=== PATIENT | female | born 1975 | race Caucasian/White ===

== ENCOUNTER 2016-11-11 23:29 | Emergency (ER) | payer OTHER ==
[~2016-11-11] VITALS: Ht 167.6 cm; Wt 117.9 kg
[2016-11-12 01:37] VITALS: BP 153/92
[2016-11-12] MEDS ORDERED: OXYCODONE/APAP 5/325 TABLET. PO ONE (02:00)
[2016-11-12] MEDS ORDERED: HYDR-2666 PO (04:06)
--- NOTE | 2016-11-12 04:06 | PHYS DOC ---
Past Medical History Past Medical History: Hypertension Past Surgical History: Hysterectomy Alcohol Use: Occasionally Drug Use: None Adult General Chief Complaint Chief Complaint: FOOT INJURY PAIN HPI HPI 40-year-old female presenting to the emergency Department with injury to her right foot and ankle. She fell down a few stairs and dorsiflexed her right foot. Since then she is had sharp nonradiating pain that is worse with walking and improved with rest and ice. She denies any other injuries. Review of systems is negative for chest pain knee pain hip pain or abdominal pain. All other review of systems is negative. Review of Systems Review of Systems see above Current Medications Current Medications Current Medications Medications (Trade) Dose Ordered Sig/Fabby Start Time Stop Time Status Last Admin Dose Admin Oxycodone/ Acetaminophen (Percocet 5/325) 1 tab 1X ONCE 11/12/16 02:00 11/12/16 02:01 DC 11/12/16 02:33 1 TAB Allergies Allergies Allergies Coded Allergies Type Severity Reaction Last Updated Verified No Known Drug Allergies 11/12/16 No Physical Exam Physical Exam Constitutional: Well developed, well nourished, no acute distress, non-toxic appearance. HENT: Normocephalic, atraumatic, bilateral external ears normal, oropharynx moist, no oral exudates, nose normal. [] Eyes: PERRLA, EOMI, conjunctiva normal, no discharge. Neck: Normal range of motion, no tenderness, supple, no stridor. [] Cardiovascular:Heart rate regular rhythm, no murmur Lungs & Thorax: Bilateral breath sounds clear to auscultation [] Abdomen: Bowel sounds normal, soft, no tenderness, no masses, no pulsatile masses. Skin: Warm, dry, no erythema, no rash. [] Back: No tenderness, no CVA tenderness. Extremities: the patient's right lower extremity is one of perfused with a palpable pulse. Two second Refill present. Normal neurovascular status. There is swelling of the lateral dorsal aspect of the patient's foot. No ecchymosis lacerations present. Neurologic: Alert and oriented X 3, normal motor function, normal sensory function, no focal deficits noted. [] Psychologic: Affect normal, judgement normal, mood normal. Current Patient Data Vital Signs Vital Signs Date Time Temp Pulse Resp B/P Pulse Ox O2 Delivery O2 Flow Rate FiO2 11/12/16 02:33 16 11/12/16 01:37 97.5 61 99 Room Air 97.5 EKG EKG [] Radiology/Procedures Radiology/Procedures [] Course & Med Decision Making Course & Med Decision Making Pertinent Labs and Imaging studies reviewed. (See chart for details) []40-year-old female presenting to the emergency Department after rate ankle injury. X-rays were obtained which were largely unremarkable. There was a small radiopaque density near the distal end of the fibula. This may represent a small avulsion fracture. Otherwise ankle exam shows a stable ankle. Patients provided with oral pain medication recommended weight bearing as tolerated and to follow up with orthopedic surgery in 5 days for further evaluation workup and care. Dragon Disclaimer Dragon Disclaimer This electronic medical record was generated, in whole or in part, using a voice recognition dictation system. Departure Departure Impression: Primary Impression: Ankle sprain Disposition: HOME, SELF-CARE Condition: STABLE Referrals: ISAURA VICTORIA MD (PCP) REYNOLD NIELSEN MD Patient Instructions: Ankle Sprain Additional Instructions: Thank you for allowing us to participate in your care today. Followup with your primary care physician in 3 days if your symptoms do not improve. If you do not have a primary care provider you can ask for a list of our primary care providers. Return to the emergency department you have any new or concerning findings. This should be evaluated by the primary care physician and any necessary consulting services for continued management within a few days after discharge. Return to emergency room if you have any new or concerning symptoms including but not limited to fever, chills, nausea, vomiting, intractable pain, any new rashes, chest pain, shortness of air, uncontrolled bleeding, difficulty breathing, and/or vision loss. Scripts Hydrocodone Bit/Acetaminophen (Hydrocodone-Apap 5-325 )1 Each Tablet1 Tab PO PRN Q6HRS PRN PAIN #15 TAB Be careful as this medication may cause you to be drowsy or tired. Do not drive on this medication. Prov:CARLOS RIDDLE MD 11/12/16 CARLOS RIDDLE MD Nov 12, 2016 04:06
--- NOTE | 2016-11-12 07:41 | RAD ---
ANKLE RIGHT 3V History:ankle pain Comparison: None Findings:3 views right ankle are submitted. There is mild soft tissue swelling greater laterally about the ankle. There is a small plantar calcaneal enthesophyte. No acute fracture is identified. Impression: 1.No acute fracture is identified.
--- NOTE | 2016-11-12 07:48 | RAD ---
FOOT RIGHT 3V History:foot pain Comparison: None Findings:3 views right foot are submitted. No acute fracture or dislocation is identified. There is small plantar calcaneal enthesophyte. There is mild degenerative change midfoot. Impression: 1.No acute abnormality is identified.
[2016-11-13] MEDS ORDERED: METH4TAB2 PO (14:01)
[2016-11-13] MEDS ORDERED: HYDR-2762 PO (14:01)
[2016-11-13] MEDS ORDERED: GABA-586 PO (14:01)
== END 2016-11-12 04:31 | disposition home or self-care (01) ==
LOC: ER 23:29
DX: S93.401A Sprain of unspecified ligament of right ankle, initial encounter (principal); Z90.710 Acquired absence of both cervix and uterus; I10 Essential (primary) hypertension; W10.8XXA Fall (on) (from) other stairs and steps, initial encounter; Y93.89 Activity, other specified; Y92.89 Other specified places as the place of occurrence of the external cause; Y99.8 Other external cause status
CPT/HCPCS: 73610; 73630; 99284

== ENCOUNTER 2016-11-13 12:01 | Emergency (ER) | payer OTHER ==
[~2016-11-13 12:01] MED LIST: HYDR-2666 PO
[2016-11-13 13:16] VITALS: BP 114/59
[2016-11-13] MEDS ORDERED: HYDR-2762 PO (14:01)
[2016-11-13] MEDS ORDERED: GABA-586 PO (14:01)
[2016-11-13] MEDS ORDERED: METH4TAB2 PO (14:01)
--- NOTE | 2016-11-13 14:01 | PHYS DOC ---
Past Medical History Past Medical History: Hypertension Past Surgical History: Hysterectomy Alcohol Use: Occasionally Drug Use: None Adult General Chief Complaint Chief Complaint: FOOT INJURY PAIN HPI HPI Patient is a 40 year old female with history of hypertension who presents with continued moderate right ankle pain that began 2 days ago after she twisted her right ankle. She was seen in the ED, she states she had negative x-rays. Review of Systems Review of Systems Constitutional: Denies fever or chills [] Musculoskeletal: Right ankle pain Integument: Denies rash or skin lesions [] Neurologic: Denies headache, focal weakness or sensory changes [] Endocrine: Denies polyuria or polydipsia [] Allergies Allergies Allergies Coded Allergies Type Severity Reaction Last Updated Verified No Known Drug Allergies 11/12/16 No Physical Exam Physical Exam Constitutional: Well developed, well nourished, no acute distress, non-toxic appearance. [] Skin: Warm, dry, no erythema, no rash. [] Back: No tenderness, no CVA tenderness. [] Extremities: Right ankle with no obvious deformity, diffuse soft tissue swelling noted on the right lateral ankle. Tenderness on palpation of the medial and lateral ankle. Full range of motion to the right ankle and foot. +2 right pedal pulse. Cap refill less than 2 seconds the right lower extremity. Sensation intact to the right lower extremity. Neurologic: Alert and oriented X 3, normal motor function, normal sensory function, no focal deficits noted. [] Psychologic: Affect normal, judgement normal, mood normal. [] Current Patient Data Vital Signs Vital Signs Date Time Temp Pulse Resp B/P Pulse Ox O2 Delivery O2 Flow Rate FiO2 11/13/16 13:16 97.7 59 20 100 Room Air 97.7 EKG EKG [] Radiology/Procedures Radiology/Procedures [] Course & Med Decision Making Course & Med Decision Making Pertinent Labs and Imaging studies reviewed. (See chart for details) Patient is in the ED with continued right ankle pain after spraining 82 days ago. She was seen in the ED had negative x-rays. I recommended she follows up with the provided orthopedic doctor. Air cast was applied to the right ankle by the ED RN, neurovascular exam done by me is normal, patient was provided crutches. Ice elevation encouraged. Dragon Disclaimer Dragon Disclaimer This electronic medical record was generated, in whole or in part, using a voice recognition dictation system. Departure Departure Impression: Primary Impression: Ankle sprain Disposition: HOME, SELF-CARE Condition: STABLE Referrals: ISAURA VICTORIA MD (PCP) NOVA HEATON MD Follow-up with the provided doctor in 7 days Patient Instructions: Ankle Sprain Additional Instructions: You were seen for ongoing pain due to ankle sprain. Ice and elevate the extremity. Take the prescribed medicines as ordered. Follow-up with the provided orthopedic doctor in one week. Come back to the ED for any concerning symptoms. Scripts Gabapentin 300 Mg [id number] Mg PO TID #30 CAP Prov:YU THRASHER APRN 11/13/16 Methylprednisolone (Medrol)4 Mg Tab.ds.pk1 Pkg PO UD #1 PKG Prov:YU THRASHER APRN 11/13/16 Hydrocodone Bit/Acetaminophen (Hydrocodone-Apap 7.5-325 )1 Each Tablet1-2 Tab PO PRN Q6HRS PRN PAIN #20 TAB Ref 0 Prov:YU THRASHER APRN 11/13/16 Problem Qualifiers Primary Impression: Ankle sprain Encounter type: subsequent encounter Involved ligament of ankle: unspecified ligament Laterality: unspecified laterality Qualified Code: S93.409D - Sprain of unspecified ligament of unspecified ankle, subsequent encounter YU THRASHER APRN Nov 13, 2016 14:01
== END 2016-11-13 14:29 | disposition home or self-care (01) ==
LOC: ER 12:01
DX: S93.401A Sprain of unspecified ligament of right ankle, initial encounter (principal); I10 Essential (primary) hypertension; X50.9XXA Other and unspecified overexertion or strenuous movements or postures, initial encounter; Y93.89 Activity, other specified; Y92.89 Other specified places as the place of occurrence of the external cause; Y99.8 Other external cause status
CPT/HCPCS: 29515; 99283-25

== ENCOUNTER → 2017-01-11 | Outpatient (CLI) | payer OTHER ==
[~2017-01-11] MED LIST changes: +GABA-586 PO; +HYDR-2762 PO; +METH4TAB2 PO
--- NOTE | 2017-01-11 10:14 | RAD ---
DATE: January 11, 2017 EXAM: DIGITAL DIAGNOSTIC BILATERAL HISTORY: History of left breast lump since July 2016. COMPARISON: None are currently available. [facility] and [facility] were contacted and neither facility has any previous mammograms on this patient. Therefore, this is considered a new baseline mammogram This study was interpreted with the benefit of Computerized Aided Detection (CAD). DIAGNOSTIC MAMMOGRAM FINDINGS: The breast parenchyma is scattered and mildly dense. A metallic BB is placed on the palpable lump of the upper-outer quadrant of the left breast. This corresponds to a nodule. The right breast is unremarkable. No clustering of pleomorphic microcalcifications or architectural distortion is seen in either side. LEFT BREAST SONOGRAPHY: High-resolution sonography of the palpable lump of the left breast as indicated by the patient was performed. At the 2:00 position, 14 cm from the nipple, a lymph node is seen which measures 14 mm in greatest dimension. An echogenic central hilus is seen. The cortex measures 3.6 mm which is borderline. Therefore, this most likely represents a benign intramammary lymph node possibly reactive but recommend a 3 month follow-up left breast sonogram. IMPRESSION: Palpable lump corresponds to an intramammary lymph node of the 2:00 position of the left breast. Three-month follow-up left breast sonogram is recommended. BI-RADS CATEGORY: 3 PROBABLE BENIGN-SHORT TERM F/U RECOMMENDED FOLLOW-UP: 3M 3 MONTH FOLLOW-UP PQRS compliance statement: Patient information was entered into a reminder system with a target due date April 12, 2017 for the next imaging study. The patient's breast density may affect the ability of mammography to detect breast cancer. There are 4 categories of breast density, A, B, C and D. Breast density A means that most of the breast tissue is replaced with adipose tissue and therefore is not dense. Breast density B means that the breast tissue is mildly dense and scattered. Breast density C means that the breast tissue is heterogeneously dense. Breast density D means that the breast tissue is very dense. Breast densities especially C and D may decrease the sensitivity of mammography to detect breast cancer. Therefore, the patient may benefit from 3-D breast mammography (3D breast tomography) as a part of their screening mammogram. Insurance may or may not pay for this additional imaging. The patient's breast density based on today's mammogram is category B.. Mammography is a sensitive method for finding small breast cancers, but it does not detect them all and is not a substitute for careful clinical examination. A negative mammogram does not negate a clinically suspicious finding and should not result in delay in biopsying a clinically suspicious abnormality. "Our facility is accredited by the [employer] Mammography Program."
--- NOTE | 2017-01-11 10:55 | RAD ---
See diagnostic mammogram report of the same day. BI-RADS Category 3.
== END | disposition home or self-care (01) ==
LOC: MAMMO 09:16
PROVIDERS: ATTEND Family Medicine
DX: N63 Unspecified lump in breast (principal)
CPT/HCPCS: 76641; G0204; 77066

== ENCOUNTER → 2017-05-16 | Outpatient (CLI) | payer OTHER ==
[~2017-05-16] MED LIST changes: -HYDR-2666 PO; +HYDR-2758 PO
--- NOTE | 2017-05-16 15:34 | RAD ---
DATE: 01/11/2018 05/16/2017 EXAM: BREAST LEFT HISTORY: Follow-up left breast abnormality. COMPARISON: Left breast ultrasound 01/11/2017 FINDINGS: Sonographic evaluation at the 2:00 position, 14 cm from the nipple was performed in the region of previously described abnormality. There is redemonstration of a circumscribed oval predominantly hypoechoic mass with a central fatty hilum compatible with an intramammary lymph node. Lymph node measures 1.3 cm in maximal dimension, stable from the prior examination. There is relatively symmetric appearance of the cortex. Findings are compatible with benign findings. IMPRESSION: Left breast: Benign findings. Left breast intramammary lymph node compatible with benign findings. Recommend annual screening mammography. BI-RADS CATEGORY: 2 BENIGN FINDING(S) RECOMMENDED FOLLOW-UP: 12M 12 MONTH FOLLOW-UP PQRS compliance statement: Patient information was entered into a reminder system with a target due date 01/11/2018 for the next mammogram. Mammography is a sensitive method for finding small breast cancers, but it does not detect them all and is not a substitute for careful clinical examination. A negative mammogram does not negate a clinically suspicious finding and should not result in delay in biopsying a clinically suspicious abnormality. "Our facility is accredited by the [employer] Mammography Program."
== END | disposition home or self-care (01) ==
LOC: US 14:58
PROVIDERS: ATTEND Family Medicine
DX: R92.8 Other abnormal and inconclusive findings on diagnostic imaging of breast (principal)
CPT/HCPCS: 76641

== ENCOUNTER 2017-09-07 06:52 | Emergency (ER) | payer OTHER ==
[~2017-09-07] VITALS: Ht 165.1 cm; Wt 113.4 kg
--- NOTE | 2017-09-07 07:18 | EKG ---
[facility] [address] [place] [address] Test Date: 2017-09-07 Test Time: 07:04:58 Pat Name: KATRINA FISHER Department: Room: Gender: F Test Examiner: : 1975 Requested By: AZUCENA ROSALES Order Number: [id number] Reading MD: Measurements Intervals [place] Rate: 75 P: 46 VA: 176 QRS: -6 QRSD: 90 T: 13 QT: 368 QTc: 413 Interpretive Statements SINUS RHYTHM LEFTWARD AXIS NON SPECIFIC T ABNORMALITY BORDERLINE ECG No previous ECG available for comparison
--- NOTE | 2017-09-07 07:22 | PHYS DOC ---
Past Medical History Past Medical History: Hypertension Past Surgical History: Hysterectomy Alcohol Use: Occasionally Drug Use: None Adult General Chief Complaint Chief Complaint: CHEST PAIN HPI HPI Patient is a 41 year old female with a history of HTN presents to the ED complaining of chest/upper abdomen discomfort x 5 hours. 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 States her last meal was grilled cheese and popcorn. Rates it as a 4/10. States she has a history of GERD but has not had to taken medication for her symptoms before. Denies shortness of breath, fever, n/v, dizziness, weakness, diarrhea, headache, rash, or palpitations. Review of Systems Review of Systems Constitutional: Denies fever or chills [] Eyes: Denies change in visual acuity, redness, or eye pain [] HENT: Denies nasal congestion or sore throat [] Respiratory: Denies cough. [] Cardiovascular: No additional information not addressed in HPI [] GI: Denies abdominal pain, nausea, vomiting, bloody stools or diarrhea [] : Denies dysuria or hematuria [] Musculoskeletal: Denies back pain or joint pain [] Integument: Denies rash or skin lesions [] Neurologic: Denies headache, focal weakness or sensory changes [] Endocrine: Denies polyuria or polydipsia [] All other systems were reviewed and found to be within normal limits, except as documented in this note. Current Medications Current Medications Current Medications Medications (Trade) Dose Ordered Sig/Fabby Start Time Stop Time Status Last Admin Dose Admin Aspirin (Ezequiel Aspirin) 325 mg 1X ONCE 09/07/17 07:30 09/07/17 07:31 DC 09/07/17 07:29 325 MG Famotidine (Pepcid Vial) 20 mg 1X ONCE 09/07/17 07:30 09/07/17 07:31 DC 09/07/17 07:30 20 MG Allergies Allergies Allergies Coded Allergies Type Severity Reaction Last Updated Verified No Known Drug Allergies 11/12/16 No Physical Exam Physical Exam Constitutional: Well developed, well nourished, no acute distress, non-toxic appearance. [] HENT: Normocephalic, atraumatic, oropharynx moist [] Eyes: PERRLA, EOMI, conjunctiva normal, no discharge. [] Neck: Normal range of motion, no tenderness, supple, no stridor. [] Cardiovascular:Heart rate regular rhythm, no murmur [] Lungs & Thorax: Bilateral breath sounds clear to auscultation [] Abdomen: Bowel sounds normal, soft, no tenderness, no masses, no pulsatile masses. [] Skin: Warm, dry, no erythema, no rash. [] Neurologic: Alert and oriented X 3, normal motor function, normal sensory function, no focal deficits noted. [] Psychologic: Affect normal, judgement normal, mood normal. [] Current Patient Data Vital Signs Vital Signs Date Time Temp Pulse Resp B/P (MAP) Pulse Ox O2 Delivery O2 Flow Rate FiO2 09/07/17 08:35 60 19 134/78 (96) 96 Room Air 09/07/17 07:00 98.3 98.3 Lab Values Laboratory Tests Test 09/07/17 07:10 09/07/17 07:45 White Blood Count 12.3 x10^3/uL (4.0-11.0) H Red Blood Count 5.25 x10^6/uL (3.50-5.40) Hemoglobin 13.2 g/dL (12.0-15.5) Hematocrit 41.5 % (36.0-47.0) Mean Corpuscular Volume 79 fL (79-100) Mean Corpuscular Hemoglobin 25 pg (25-35) Mean Corpuscular Hemoglobin Concent 32 g/dL (31-37) Red Cell Distribution Width 14.0 % (11.5-14.5) Platelet Count 441 x10^3/uL (140-400) H Neutrophils (%) (Auto) 56 % (31-73) Lymphocytes (%) (Auto) 32 % (24-48) Monocytes (%) (Auto) 8 % (0-9) Eosinophils (%) (Auto) 4 % (0-3) H Basophils (%) (Auto) 1 % (0-3) Neutrophils # (Auto) 7.0 x10^3uL (1.8-7.7) Lymphocytes # (Auto) 3.9 x10^3/uL (1.0-4.8) Monocytes # (Auto) 0.9 x10^3/uL (0.0-1.1) Eosinophils # (Auto) 0.4 x10^3/uL (0.0-0.7) Basophils # (Auto) 0.1 x10^3/uL (0.0-0.2) Sodium Level 140 mmol/L (136-145) Potassium Level 3.7 mmol/L (3.5-5.1) Chloride Level 102 mmol/L (98-107) Carbon Dioxide Level 28 mmol/L (21-32) Anion Gap 10 (6-14) Blood Urea Nitrogen 10 mg/dL (7-20) Creatinine 0.8 mg/dL (0.6-1.0) Estimated GFR (Cockcroft-Gault) 79.4 BUN/Creatinine Ratio 13 (6-20) Glucose Level 93 mg/dL (70-99) Calcium Level 9.0 mg/dL (8.5-10.1) Total Bilirubin 0.3 mg/dL (0.2-1.0) Aspartate Amino Transferase (AST) 15 U/L (15-37) Alanine Aminotransferase (ALT) 18 U/L (14-59) Alkaline Phosphatase 85 U/L (46-116) Creatine Kinase 78 U/L (26-192) Creatine Kinase MB (Mass) < 0.5 ng/mL (0.0-3.6) Creatine Kinase MB Relative Index % (0-4) Troponin I Quantitative < 0.017 ng/mL (0.000-0.055) Total Protein 7.5 g/dL (6.4-8.2) Albumin 3.5 g/dL (3.4-5.0) Albumin/Globulin Ratio 0.9 (1.0-1.7) L Lipase 140 U/L (73-393) Urine Collection Type Unknown Urine Color Yellow Urine Clarity Clear Urine pH 6.0 Urine Specific [place] <=1.005 Urine Protein Negative mg/dL (NEG-TRACE) Urine Glucose (UA) Negative mg/dL (NEG) Urine Ketones (Stick) Negative mg/dL (NEG) Urine Blood Negative (NEG) Urine Nitrite Negative (NEG) Urine Bilirubin Negative (NEG) Urine Urobilinogen Dipstick 0.2 mg/dL (0.2 mg/dL) Urine Leukocyte Esterase Negative (NEG) Urine RBC 0 /HPF (0-2) Urine WBC 1-4 /HPF (0-4) Urine Squamous Epithelial Cells Mod /LPF Urine Bacteria Mod /HPF (0-FEW) Laboratory Tests 09/07/17 07:10 Laboratory Tests 09/07/17 07:10 EKG EKG []NSR at 75 BPM. No STEMI. No acute changes. Radiology/Procedures Radiology/Procedures []PROCEDURE: PORTABLE CHEST 1V Portable chest, 09/07/2017: History: Chest pain The left ventricle is prominent. The pulmonary vascularity is normal. No pulmonary infiltrates are seen. There is no evidence of pleural fluid. IMPRESSION: 1. Left ventricular prominence. 2. No acute cardiopulmonary abnormality is detected. Course & Med Decision Making Course & Med Decision Making Pertinent Labs and Imaging studies reviewed. (See chart for details) []Patients pain resolved with pepcid in ED. Reviewed labs and imaging with patient. Patient states she is feeling much better. Discussed admission and patient states she wants to go home. States she saw a soaping machine back tender a few years ago and when she was diagnosed with HTN by her PCP. States she had a normal stress test and workup. Discussed follow-up with her PCP this week and reasons to return to the ED. Patient understands and agrees with plan. Dragon Disclaimer Dragon Disclaimer This electronic medical record was generated, in whole or in part, using a voice recognition dictation system. Departure Departure Impression: Primary Impression: Abdominal pain Additional Impression: Acid reflux Disposition: HOME, SELF-CARE Condition: IMPROVED Referrals: ISAURA VICTORIA MD (PCP) Patient Instructions: Diet for Gastroesophageal Reflux Disease, Adult, Gastroesophageal Reflux Disease, Adult Scripts Famotidine (PEPCID) 20 Mg Tablet 20 MG PO BID, #20 TAB Prov: AZUCENA ROSALES 09/07/17 Problem Qualifiers AZUCENA ROSALES Sep 07, 2017 07:22
[2017-09-07] MEDS ORDERED: FAMOTIDINE 20 MG/2 ML VIAL IVP ONE (07:30)
[2017-09-07] MEDS ORDERED: ASPIRIN 325 MG TABLET PO ONE (07:30)
[2017-09-07 07:46] LABS: BASO # 0.1 x10^3/uL (0.0-0.2); BASO % 1 % (0-3); EOS % 4 % (0-3); HEMATOCRIT 41.5 % (36.0-47.0); HEMOGLOBIN 13.2 g/dL (12.0-15.5); LYMPH # 3.9 x10^3/uL (1.0-4.8); LYMPH % 32 % (24-48); MEAN CORPUSCULAR HEMOGLOBIN 25 pg (25-35); MEAN CORPUSCULAR HGB CONC 32 g/dL (31-37); MEAN CORPUSCULAR VOLUME 79 fL (79-100); MONO % 8 % (0-9); NEUT % 56 % (31-73); PLATELET COUNT 441 x10^3/uL (140-400); RED BLOOD COUNT 5.25 x10^6/uL (3.50-5.40); WHITE BLOOD COUNT 12.3 x10^3/uL (4.0-11.0)
--- NOTE | 2017-09-07 07:47 | RAD ---
Portable chest, 09/07/2017: History: Chest pain The left ventricle is prominent. The pulmonary vascularity is normal. No pulmonary infiltrates are seen. There is no evidence of pleural fluid. IMPRESSION: 1. Left ventricular prominence. 2. No acute cardiopulmonary abnormality is detected.
[2017-09-07 07:59] LABS: BILIRUBIN,URINE NEGATIVE (NEG); GLUCOSE,URINE NEGATIVE (NEG); NITRITE,URINE NEGATIVE (NEG); PROTEIN,URINE NEGATIVE (NEG-TRACE); UROBILINOGEN,URINE 0.2 mg/dL (0.2 mg/dL)
[2017-09-07 08:04] LABS: CREATININE 0.8 mg/dL (0.6-1.0); GFR 79.4; POTASSIUM 3.7 mmol/L (3.5-5.1)
[2017-09-07 08:09] LABS: BACTERIA,URINE MOD /HPF (0-FEW); SQUAMOUS EPITHELIAL CELL,UR MOD /LPF
[2017-09-07 08:10] LABS: RBC,URINE 0 /HPF (0-2)
[2017-09-07 08:11] LABS: ALBUMIN 3.5 g/dL (3.4-5.0); ALBUMIN/GLOBULIN RATIO 0.9 (1.0-1.7); TOTAL BILIRUBIN 0.3 mg/dL (0.2-1.0); TOTAL PROTEIN 7.5 g/dL (6.4-8.2)
[2017-09-07 08:26] LABS: CKMB MASS < 0.5 ng/mL (0.0-3.6); CREATINE KINASE 78 U/L (26-192)
[2017-09-07 08:35] VITALS: BP 134/78
[2017-09-07] MEDS ORDERED: FAMO-63 PO (08:45)
== END 2017-09-07 09:00 | disposition home or self-care (01) ==
LOC: ER 06:52
DX: K21.9 Gastro-esophageal reflux disease without esophagitis (principal); I10 Essential (primary) hypertension; Z90.710 Acquired absence of both cervix and uterus
CPT/HCPCS: 36415; 71010; 80053; 81001; 82553; 83690; 84484; 85025; 93005; 96374; 99285; S0028

== ENCOUNTER → 2018-08-14 | Outpatient (CLI) | payer OTHER ==
[~2018-08-14] MED LIST changes: +FAMO-63 PO
--- NOTE | 2018-08-15 16:36 | RAD ---
DATE: 08/14/2018 EXAM: MAMMO KERON SCREENING BILATERAL HISTORY: Routine screening COMPARISON: 01/11/2017 screen mammographic exam This study was interpreted with the benefit of Computerized Aided Detection (CAD). Breast Density: SCATTERED The breast parenchyma shows scattered fibroglandular densities. Breast parenchyma level B. FINDINGS: Left upper outer breast lymph node posteriorly is stable. No new masses, calcification clusters, or distortion. IMPRESSION: Normal BI-RADS CATEGORY: 2 BENIGN FINDING(S) RECOMMENDED FOLLOW-UP: 12M 12 MONTH FOLLOW-UP PQRS compliance statement: Patient information was entered into a reminder system with a target due date in one year for the next mammogram. Mammography is a sensitive method for finding small breast cancers, but it does not detect them all and is not a substitute for careful clinical examination. A negative mammogram does not negate a clinically suspicious finding and should not result in delay in biopsying a clinically suspicious abnormality. "Our facility is accredited by the [employer] Mammography Program."
== END | disposition home or self-care (01) ==
LOC: MAMMO 15:30
PROVIDERS: ATTEND Family Medicine
DX: Z12.31 Encounter for screening mammogram for malignant neoplasm of breast (principal)
CPT/HCPCS: 77063; 77067

== ENCOUNTER → 2018-09-03 | Outpatient (CLI) | payer OTHER ==
[~2018-09-03] MED LIST changes: -GABA-586 PO; +GABA300C18 PO; -HYDR-2758 PO; +HYDR-2761 PO; -HYDR-2762 PO; +HYDR-2765 PO
[2018-09-03 23:11] LABS: BASO # 0.1 x10^3/uL (0.0-0.2); BASO % 1 % (0-3); EOS # 0.3 x10^3/uL (0.0-0.7); EOS % 3 % (0-3); HEMATOCRIT 41.5 % (36.0-47.0); HEMOGLOBIN 13.7 g/dL (12.0-15.5); LYMPH # 2.7 x10^3/uL (1.0-4.8); LYMPH % 25 % (24-48); MEAN CORPUSCULAR HEMOGLOBIN 26 pg (25-35); MEAN CORPUSCULAR HGB CONC 33 g/dL (31-37); MEAN CORPUSCULAR VOLUME 78 fL (79-100); MONO # 0.6 x10^3/uL (0.0-1.1); MONO % 6 % (0-9); NEUT # 7.2 x10^3uL (1.8-7.7); NEUT % 66 % (31-73); PLATELET COUNT 377 x10^3/uL (140-400); RED BLOOD COUNT 5.31 x10^6/uL (3.50-5.40)
[2018-09-03 23:28] LABS: ALBUMIN 3.7 g/dL (3.4-5.0); ALBUMIN/GLOBULIN RATIO 0.9 (1.0-1.7); CREATININE 0.8 mg/dL (0.6-1.0); POTASSIUM 3.9 mmol/L (3.5-5.1); TOTAL BILIRUBIN 0.5 mg/dL (0.2-1.0); TOTAL PROTEIN 7.8 g/dL (6.4-8.2)
[2018-09-03 23:30] LABS: CHOLESTEROL/HDL RATIO 4.1
[2018-09-04 19:14] LABS: HEMOGLOBIN A1C 5.8 % (4.8-5.6)
== END | disposition home or self-care (01) ==
LOC: LAB 22:45
PROVIDERS: ATTEND Family Medicine
DX: E78.2 Mixed hyperlipidemia (principal); J06.9 Acute upper respiratory infection, unspecified; N63.0 Unspecified lump in unspecified breast; I10 Essential (primary) hypertension; R73.09 Other abnormal glucose; Z68.41 Body mass index [BMI] 40.0-44.9, adult
CPT/HCPCS: 36415; 80053; 80061; 83036; 84443; 85025

== ENCOUNTER 2019-01-29 00:54 | Emergency (ER) | payer OTHER ==
[~2019-01-29] VITALS: Ht 167.6 cm; Wt 117.9 kg
[2019-01-29] MEDS ORDERED: KETOROLAC 15 MG/ML VIAL. IV ONE (01:30)
[2019-01-29] MEDS ORDERED: IV NORMAL SALINE 1000ML BAG 1,000 ML IV ONE (01:30)
[2019-01-29 02:11] LABS: BASO # 0.1 x10^3/uL (0.0-0.2); BASO % 1 % (0-3); EOS # 0.4 x10^3/uL (0.0-0.7); EOS % 4 % (0-3); HEMATOCRIT 40.2 % (36.0-47.0); HEMOGLOBIN 13.1 g/dL (12.0-15.5); LYMPH # 3.4 x10^3/uL (1.0-4.8); LYMPH % 31 % (24-48); MEAN CORPUSCULAR HEMOGLOBIN 25 pg (25-35); MEAN CORPUSCULAR HGB CONC 33 g/dL (31-37); MEAN CORPUSCULAR VOLUME 78 fL (79-100); MONO # 0.5 x10^3/uL (0.0-1.1); MONO % 5 % (0-9); NEUT # 6.4 x10^3uL (1.8-7.7); NEUT % 59 % (31-73); PLATELET COUNT 373 x10^3/uL (140-400); RED BLOOD COUNT 5.16 x10^6/uL (3.50-5.40); RED CELL DISTRIBUTION WIDTH 14.3 % (11.5-14.5); WHITE BLOOD COUNT 10.8 x10^3/uL (4.0-11.0)
[2019-01-29 02:26] LABS: CALCIUM 9.1 mg/dL (8.5-10.1); CREATININE 0.8 mg/dL (0.6-1.0); GFR 78.7; POTASSIUM 3.5 mmol/L (3.5-5.1)
[2019-01-29 02:31] LABS: ALBUMIN 3.4 g/dL (3.4-5.0); ALBUMIN/GLOBULIN RATIO 0.9 (1.0-1.7); MAGNESIUM 1.7 mg/dL (1.8-2.4); TOTAL BILIRUBIN 0.3 mg/dL (0.2-1.0); TOTAL PROTEIN 7.1 g/dL (6.4-8.2)
--- NOTE | 2019-01-29 02:31 | RAD ---
PROCEDURE: CHEST PA LATERAL CLINICAL INDICATION: chest pain x tonight COMPARISON: None FINDINGS: No pneumothorax identified. Cardiac and mediastinal contours unremarkable. No pulmonary consolidation or acute airspace disease. No acute osseous abnormalities identified. IMPRESSION: No pulmonary consolidation or acute airspace disease. Electronically signed by: Cristiano Carolina DO (01/29/2019 2:28 AM) [id number]
[2019-01-29 03:11] LABS: BILIRUBIN,URINE NEGATIVE (NEG); CLARITY,URINE CLEAR; COLOR,URINE YELLOW; NITRITE,URINE NEGATIVE (NEG); PH,URINE 5.5; PROTEIN,URINE NEGATIVE (NEG-TRACE); UROBILINOGEN,URINE 0.2 mg/dL (0.2 mg/dL)
[2019-01-29 03:14] LABS: BACTERIA,URINE 0 /HPF (0-FEW); RBC,URINE 0 /HPF (0-2); WBC,URINE OCC /HPF (0-4)
[2019-01-29 03:15] LABS: SQUAMOUS EPITHELIAL CELL,UR FEW /LPF
--- NOTE | 2019-01-29 04:21 | PHYS DOC ---
Past Medical History Past Medical History: Hypertension Additional Past Medical Histor: MURMUR Past Surgical History: Hysterectomy Alcohol Use: Occasionally Drug Use: None Adult General Chief Complaint Chief Complaint: CHEST PAIN HPI HPI Patient is a 43 year old female who presents with chest pain. She states the pain originally started yesterday when she was at a November event walking. She originally contributed the pain to sore muscles, but her pain continued throughout the day and into today. Due to the continued pain the patient wanted to be evaluated. She describes the pain as a sharp sensation that is located substernally. The pain radiates into her right shoulder. It is worsened with movement. Nothing in particular has relieved her pain. She denies any shortness of breath, nausea, vomiting, lightheadedness, or dizziness. Review of Systems Review of Systems Constitutional: Denies fever or chills [] Eyes: Denies redness or eye pain [] HENT: Denies nasal congestion or sore throat [] Respiratory: Denies cough or shortness of breath [] Cardiovascular: Reports chest pain. Denies palpitations [] GI: Denies abdominal pain, nausea, vomiting : Denies dysuria or hematuria [] Musculoskeletal: Denies back pain or joint pain [] Integument: Denies rash or skin lesions [] Neurologic: Denies headache or focal weakness [] Complete systems were reviewed and found to be within normal limits, except as documented in this note. Current Medications Current Medications Current Medications Medications (Trade) Dose Ordered Sig/Fabby Start Time Stop Time Status Last Admin Dose Admin Ketorolac Tromethamine (Toradol 15mg Vial) 15 mg 1X ONCE 01/29/19 01:30 01/29/19 01:31 DC 01/29/19 02:18 15 MG Sodium Chloride 1,000 ml @ 1,000 mls/hr 1X ONCE 01/29/19 01:30 01/29/19 02:29 DC 01/29/19 02:18 1,000 MLS/HR Allergies Allergies Allergies Coded Allergies Type Severity Reaction Last Updated Verified No Known Drug Allergies 11/12/16 No Physical Exam Physical Exam Constitutional: Well developed, well nourished, no acute distress, non-toxic appearance. [] HENT: Normocephalic, atraumatic Eyes:EOMI, no discharge. [] Neck: Normal range of motion, supple Cardiovascular:Heart rate regular rhythm, no murmur [] Lungs & Thorax: Bilateral breath sounds clear to auscultation, no rhonchi, rales, or wheezes [] Abdomen: Bowel sounds normal, soft, no tenderness Skin: Warm, dry Back: No tenderness, no CVA tenderness. [] Extremities:No clubbing, no edema. [] Neurologic: Alert and oriented X 3, no focal deficits noted. [] Psychologic: Affect normal, judgement normal, mood normal. [] Current Patient Data Vital Signs Vital Signs Date Time Temp Pulse Resp B/P (MAP) Pulse Ox O2 Delivery O2 Flow Rate FiO2 01/29/19 01:02 98.5 76 20 168/87 (114) 98 Room Air 98.5 Lab Values Laboratory Tests Test 01/29/19 02:00 01/29/19 03:00 01/29/19 03:40 White Blood Count 10.8 x10^3/uL (4.0-11.0) Red Blood Count 5.16 x10^6/uL (3.50-5.40) Hemoglobin 13.1 g/dL (12.0-15.5) Hematocrit 40.2 % (36.0-47.0) Mean Corpuscular Volume 78 fL (79-100) L Mean Corpuscular Hemoglobin 25 pg (25-35) Mean Corpuscular Hemoglobin Concent 33 g/dL (31-37) Red Cell Distribution Width 14.3 % (11.5-14.5) Platelet Count 373 x10^3/uL (140-400) Neutrophils (%) (Auto) 59 % (31-73) Lymphocytes (%) (Auto) 31 % (24-48) Monocytes (%) (Auto) 5 % (0-9) Eosinophils (%) (Auto) 4 % (0-3) H Basophils (%) (Auto) 1 % (0-3) Neutrophils # (Auto) 6.4 x10^3uL (1.8-7.7) Lymphocytes # (Auto) 3.4 x10^3/uL (1.0-4.8) Monocytes # (Auto) 0.5 x10^3/uL (0.0-1.1) Eosinophils # (Auto) 0.4 x10^3/uL (0.0-0.7) Basophils # (Auto) 0.1 x10^3/uL (0.0-0.2) Sodium Level 140 mmol/L (136-145) Potassium Level 3.5 mmol/L (3.5-5.1) Chloride Level 104 mmol/L (98-107) Carbon Dioxide Level 26 mmol/L (21-32) Anion Gap 10 (6-14) Blood Urea Nitrogen 12 mg/dL (7-20) Creatinine 0.8 mg/dL (0.6-1.0) Estimated GFR (Cockcroft-Gault) 78.7 BUN/Creatinine Ratio 15 (6-20) Glucose Level 113 mg/dL (70-99) H Calcium Level 9.1 mg/dL (8.5-10.1) Magnesium Level 1.7 mg/dL (1.8-2.4) L Total Bilirubin 0.3 mg/dL (0.2-1.0) Aspartate Amino Transferase (AST) 14 U/L (15-37) L Alanine Aminotransferase (ALT) 16 U/L (14-59) Alkaline Phosphatase 92 U/L (46-116) Creatine Kinase 127 U/L (26-192) Creatine Kinase MB (Mass) 1.1 ng/mL (0.0-3.6) Creatine Kinase MB Relative Index 0.9 % (0-4) Troponin I Quantitative < 0.017 ng/mL (0.000-0.055) < 0.017 ng/mL (0.000-0.055) ZZ-[id number]-[id number]-Type Natriuretic Peptide 145 pg/mL (0-124) H Total Protein 7.1 g/dL (6.4-8.2) Albumin 3.4 g/dL (3.4-5.0) Albumin/Globulin Ratio 0.9 (1.0-1.7) L Lipase 135 U/L (73-393) Urine Collection Type Unknown Urine Color Yellow Urine Clarity Clear Urine pH 5.5 Urine Specific Reserve 1.015 Urine Protein Negative mg/dL (NEG-TRACE) Urine Glucose (UA) Negative mg/dL (NEG) Urine Ketones (Stick) Negative mg/dL (NEG) Urine Blood Negative (NEG) Urine Nitrite Negative (NEG) Urine Bilirubin Negative (NEG) Urine Urobilinogen Dipstick 0.2 mg/dL (0.2 mg/dL) Urine Leukocyte Esterase Negative (NEG) Urine RBC 0 /HPF (0-2) Urine WBC Occ /HPF (0-4) Urine Squamous Epithelial Cells Few /LPF Urine Bacteria 0 /HPF (0-FEW) Urine Mucus Mod /LPF Laboratory Tests 01/29/19 02:00 Laboratory Tests 01/29/19 02:00 EKG EKG EKG @ 0100, normal sinus rhythm, rate of 72 bpm, no ST elevation or ischemia Radiology/Procedures Radiology/Procedures PROCEDURE: CHEST PA & LATERAL PROCEDURE: CHEST PA LATERAL CLINICAL INDICATION: chest pain x tonight COMPARISON: None FINDINGS: No pneumothorax identified. Cardiac and mediastinal contours unremarkable. No pulmonary consolidation or acute airspace disease. No acute osseous abnormalities identified. IMPRESSION: No pulmonary consolidation or acute airspace disease. Electronically signed by: Cristiano Carolina DO (01/29/2019 2:28 AM) [facility] DICTATED and SIGNED BY: CRISTIANO CAROLINA DO Course & Med Decision Making Course & Med Decision Making 43-year-old female presents emergency department for two days of chest pain. HEART score was 1. Labs and imaging obtained and posted to chart. Two troponins were negative. Symptomatic treatment provided with interval improvement. Patient stable for discharge with outpatient follow-up with PCP and [employer]. Discussed findings and plan with patient and family, who acknowledge understanding and agreement. Dragon Disclaimer Dragon Disclaimer This electronic medical record was generated, in whole or in part, using a voice recognition dictation system. Departure Departure Impression: Primary Impression: Chest pain Disposition: HOME, SELF-CARE Condition: STABLE Referrals: ISAURA VICTORIA MD (PCP) OANH ARRIAGA MD Patient Instructions: Chest Pain (Nonspecific), [id number] Additional Instructions: You can take over the counter Ibuprofen and Tylenol as needed for pain. Problem Qualifiers Primary Impression: Chest pain Chest pain type: unspecified Qualified Codes: R07.9 - Chest pain, unspecified SHAYLEE QUESADA DO Jan 29, 2019 04:21
[2019-01-29 04:33] VITALS: BP 123/71
--- NOTE | 2019-01-29 07:36 | EKG ---
[facility] [address] [place] [address] Test Date: 2019-01-29 Test Time: 01:00:22 Pat Name: KATRINA FISHER Department: Room: Gender: F Culinary Director: : 1975 Requested By: SHAYLEE QUESADA Order Number: [id number] Reading MD: Antoine Ruggiero Measurements Intervals [place] Rate: 72 P: 25 [place]: 172 QRS: -14 QRSD: 92 T: -5 QT: 360 QTc: 396 Interpretive Statements SINUS RHYTHM LEFTWARD AXIS NONSPECIFIC ST-T WAVE CHANGES. Electronically Signed On 02-01-2019 9:30:46 CDT by Antoine Ruggiero
== END 2019-01-29 05:10 | disposition home or self-care (01) ==
LOC: ER 00:54
DX: R07.89 Other chest pain (principal); I10 Essential (primary) hypertension; Z90.710 Acquired absence of both cervix and uterus
CPT/HCPCS: 36415; 71046; 80053; 81001; 82553; 83690; 83735; 83880; 84484; 85025; 93005; 96374; 99285; J1885; J7030

== ENCOUNTER 2020-05-17 11:04 | Emergency (ER) | payer OTHER ==
[~2020-05-17] VITALS: Ht 167.6 cm; Wt 124.0 kg
[2020-05-17 11:12] VITALS: BP 134/74
--- NOTE | 2020-05-17 12:33 | RAD ---
Right Lower Extremity Venous Doppler: Reason for examination: Right lower extremity pain. No history of injury. The right lower extremity venous system was evaluated from the common femoral and greater saphenous veins distally to the calf veins with llanos scale imaging, color flow imaging and spectral analysis. There is normal blood flow without deep venous thrombosis. There is normal response of the venous system to compression and augmentation. Impression: No deep venous thrombosis in the right lower extremity venous system. Electronically signed by: Terri Manzano MD (05/17/2020 12:30 PM) [facility]
--- NOTE | 2020-05-17 12:53 | PHYS DOC ---
Past Medical History Past Medical History: Hypertension Additional Past Medical Histor: MURMUR Past Surgical History: Hysterectomy Smoking Status: Never Smoker Alcohol Use: Occasionally Drug Use: None General Adult EDM: Chief Complaint: LOWER EXT PAIN HPI: HPI: Patient is a 44 year old AA female who presents to the emergency department with complaints of pain in her posterior right thigh since last night. She d enies any known injury. She states that the pain began while she was working. She denies any numbness, tingling, or decreased sensation of the affected extremity. Patient states that the pain increases with movement. She denies any redness, warmth, or swelling of the affected extremity. Patient states that she took 2 Tylenol at about 830 this morning and has had some relief of her pain. She currently rates the pain a 5 out of 10 on the pain scale, she denies radiation of the pain. Patient denies any recent lengthy travel, or long periods of immobilization. She denies any previous history of blood clots, but reports concerned that she possibly has a blood clot. Review of Systems: Review of Systems: Constitutional: Denies fever or chills. [] Musculoskeletal: Denies back pain or joint pain; see HPI [] Integument: Denies rash. [] Neurologic: Denies focal weakness or sensory changes. [] Psychiatric: Denies depression or anxiety. [] Heart Score: Risk Factors: Risk Factors: DM, Current or recent (<one month) smoker, HTN, HLP, family history of CAD, obesity. Risk Scores: Score 0 - 3: 2.5% MACE over next 6 weeks - Discharge Home Score 4 - 6: 20.3% MACE over next 6 weeks - Admit for Clinical Observation Score 7 - 10: 72.7% MACE over next 6 weeks - Early Invasive Strategies Allergies: Allergies: Allergies Coded Allergies Type Severity Reaction Last Updated Verified No Known Drug Allergies 11/12/16 No Physical Exam: PE: Constitutional: Well developed, well nourished, no acute distress, non-toxic appearance, obese [] HENT: Normocephalic, atraumatic, bilateral external ears normal, nose normal. [] Eyes: PERRLA, EOMI, conjunctiva normal, no discharge. [] Neck: Normal range of motion, no stridor. [] Cardiovascular:Heart rate regular rhythm Lungs & Thorax: Respirations even and unlabored, no retractions, no respiratory distress Skin: Warm, dry, no erythema, no rash. [] Extremities: RLE: 2+ pedal pulses, PMS intact, no bony tenderness, no cyanosis, ROM intact, no edema. [] Neurologic: Alert and oriented X 3, no focal deficits noted. [] Psychologic: Affect normal, judgement normal, mood normal. [] Current Patient Data: Vital Signs: Vital Signs Date Time Temp Pulse Resp B/P (MAP) Pulse Ox O2 Delivery O2 Flow Rate FiO2 05/17/20 11:12 98.5 70 16 134/74 (94) 97 Room Air 98.5 EKG: EKG: [] Radiology/Procedures: Radiology/Procedures: PROCEDURE: VENOUS LOWER EXTREMITY RIGHT Right Lower Extremity Venous Doppler: Reason for examination: Right lower extremity pain. No history of injury. The right lower extremity venous system was evaluated from the common femoral and greater saphenous veins distally to the calf veins with llanos scale imaging, color flow imaging and spectral analysis. There is normal blood flow without deep venous thrombosis. There is normal response of the venous system to compression and augmentation. Impression: No deep venous thrombosis in the right lower extremity venous system.[] Course & Med Decision Making: Course & Med Decision Making Pertinent Labs and Imaging studies reviewed. (See chart for details) 44-year-old female presents to the emergency department with complaints of atraumatic pain in her right posterior thigh. She reports concern of a blood clot. Ultrasound of the right lower extremity revealed no DVT. Patient reports feeling better after taking Tylenol prior to arrival. Patient encouraged to follow-up with her primary care doctor if symptoms persist, return to the ER symptoms worsen. Patient verbalized an understanding of home care, medications, follow-up, and return to ED instructions and was in agreement with the plan of care. [] Dragon Disclaimer: Dragon Disclaimer: This electronic medical record was generated, in whole or in part, using a voice recognition dictation system. Departure Departure Impression: Primary Impression: Right leg pain Disposition: HOME, SELF-CARE Condition: STABLE Referrals: ISAURA VICTORIA MD (PCP) Patient Instructions: Leg Cramps Additional Instructions: You can take Tylenol as needed for the pain. Recommend application of ice or heat as needed for comfort. Follow-up with your primary care doctor symptoms persist, return to the ER if symptoms worsen. Justicifation of Admission Dx: Justifications for Admission: Justification of Admission Dx: N/A KERI FRANCISCO LATHE OPERATOR May 17, 2020 12:53
== END 2020-05-17 13:02 | disposition home or self-care (01) ==
LOC: ER 11:04
DX: M79.651 Pain in right thigh (principal); I10 Essential (primary) hypertension; Z90.710 Acquired absence of both cervix and uterus
CPT/HCPCS: 93971; 99284

== ENCOUNTER → 2020-07-09 | Outpatient (CLI) | payer OTHER ==
[2020-07-09 08:54] LABS: CHOLESTEROL/HDL RATIO 4.6
--- NOTE | 2020-07-09 14:27 | RAD ---
DATE: 07/09/2020 7:55 AM EXAM: MAMMO KERON SCREENING BILATERAL HISTORY: Screening mammogram COMPARISON: August 14, 2018 Bilateral CC and MLO views of the breasts were performed. Bilateral breast tomosynthesis was performed in CC and MLO projections. This study was interpreted with the benefit of Computerized Aided Detection (CAD). FINDINGS: Breast Density: SCATTERED The breast parenchyma shows scattered fibroglandular densities. Breast parenchyma level B Unchanged left upper outer breast mass previously identified as intramammary lymph node on ultrasound. No suspicious masses, microcalcifications or architectural distortion is present to suggest malignancy in either breast. The visualized axillae are unremarkable. IMPRESSION: No mammographic evidence of malignancy. BI-RADS CATEGORY: 2 BENIGN FINDING(S) RECOMMENDED FOLLOW-UP: Annual screening mammography is recommended, unless clinically indicated sooner based on symptoms or change in physical exam. PQRS compliance statement: Patient information was entered into a reminder system with a target due date for the next mammogram. Mammography is a sensitive method for finding small breast cancers, but it does not detect them all and is not a substitute for careful clinical examination. A negative mammogram does not negate a clinically suspicious finding and should not result in delay in biopsying a clinically suspicious abnormality. "Our facility is accredited by the [employer] Mammography Program." [place]
[2020-07-09 23:08] LABS: HEMOGLOBIN A1C 5.9 % (4.8-5.6)
== END ==
LOC: MAMMO 07:38
PROVIDERS: ATTEND Family Medicine
DX: Z12.31 Encounter for screening mammogram for malignant neoplasm of breast (principal); N64.89 Other specified disorders of breast; R73.09 Other abnormal glucose; E78.2 Mixed hyperlipidemia
CPT/HCPCS: 36415; 77063; 77067; 80061; 83036; 84443

== ENCOUNTER → 2020-08-24 | Outpatient (CLI) | payer OTHER | LOC: LAB 11:07 | PROVIDERS: ATTEND Internal Medicine Pulmonary Disease | DX: R05 Cough (principal); R51.9 Headache, unspecified; R53.81 Other malaise; Z20.828 Contact with and (suspected) exposure to other viral communicable diseases | CPT/HCPCS: U0003 ==

== ENCOUNTER 2020-12-03 05:26 | Emergency (ER) | payer OTHER ==
[~2020-12-03] VITALS: Ht 167.6 cm; Wt 127.3 kg
[2020-12-03] MEDS ORDERED: FAMOTIDINE 20 MG/2 ML VIAL IVP ONE (05:45)
[2020-12-03] MEDS ORDERED: LIDO:MAALOX 1:1 20 ML SINGLE DOSE. PO ONE (05:45)
[2020-12-03] MEDS ORDERED: ASPIRIN 325 MG TABLET PO ONE (05:45)
--- NOTE | 2020-12-03 06:07 | PHYS DOC ---
Past Medical History Past Medical History: Hypertension Additional Past Medical Histor: MURMUR (SHAYLEE QUESADA DO) Past Surgical History: Hysterectomy (SHAYLEE QUESADA DO) Smoking Status: Never Smoker Alcohol Use: Occasionally Drug Use: None (SHAYLEE QUESADA DO) General Adult EDM: Chief Complaint: CHEST PAIN HPI: HPI: Patient is a 45 year female presents with report of substernal chest discomfort/pressure that started yesterday. Patient denies known trauma. Patient reports appeared worse with food and therefore took some Tums with some minimal improvement. Patient reports occurred again this morning and patient became scared and therefore presented to the ER. Cardiac risk factors include hypertension. Denies history of PE/DVT. Denies lower leg swelling or calf tenderness. Denies fever or chills. Patient does report some pleuritic pain and shortness of air. (SHAYLEE QUESADA DO) Review of Systems: Review of Systems: Constitutional: Denies fever or chills Eyes: Denies redness or eye pain HENT: Denies nasal congestion or sore throat Respiratory: Denies cough; reports shortness of breath Cardiovascular: Reports chest pain with pleurisy; denies palpitations GI: Denies abdominal pain, nausea, or vomiting : Denies dysuria or hematuria Musculoskeletal: Denies back pain or joint pain Integument: Denies rash or skin lesions Neurologic: Denies headache, focal weakness or sensory changes Complete systems were reviewed and found to be within normal limits, except as documented in this note. (SHAYLEE QUESADA DO) Heart Score: HEART Score for Chest Pain: HEART Score for Chest Pain Response (Comments) Value History Slighlty/Non-Suspicious 0 ECG Normal 0 Age < 45 0 Risk Factors 1 or 2 Risk Factors 1 Total 1 Risk Factors: Risk Factors: DM, Current or recent (<one month) smoker, HTN, HLP, family history of CAD, obesity. Risk Scores: Score 0 - 3: 2.5% MACE over next 6 weeks - Discharge Home Score 4 - 6: 20.3% MACE over next 6 weeks - Admit for Clinical Observation Score 7 - 10: 72.7% MACE over next 6 weeks - Early Invasive Strategies (SHAYLEE QUESADA DO) Current Medications: Current Medications Medications (Trade) Dose Ordered Sig/Fabby Start Time Stop Time Status Last Admin Dose Admin Aspirin (Ezequiel Aspirin) 325 mg 1X ONCE 12/03/20 05:45 12/03/20 05:46 DC Famotidine (Pepcid Vial) 20 mg 1X ONCE 12/03/20 05:45 12/03/20 05:46 DC Multi-Ingredient Mouthwash/Gargle (Gi Cocktail) 20 ml 1X ONCE 12/03/20 05:45 12/03/20 05:46 DC (SHAYLEE QUESADA DO) Allergies: Allergies: Allergies Coded Allergies Type Severity Reaction Last Updated Verified No Known Drug Allergies 11/12/16 No (SHAYLEE QUESADA DO) Physical Exam: PE: Constitutional: Well developed, well nourished, no acute distress, non-toxic appearance HENT: Normocephalic, atraumatic Eyes: Conjunctiva normal, no discharge Neck: Normal range of motion, supple Lungs & Thorax: No respiratory distress, equal chest rise and fall Abdomen: Soft, no tenderness; no distention or rebound tenderness Skin: Warm, dry, no erythema, no rash Back: No tenderness, no CVA tenderness Extremities: No tenderness, ROM intact, trace bilateral lower extremity edema Neurologic: Alert and oriented X 3, normal motor function, normal sensory function, no focal deficits noted Psychologic: Affect anxious, judgment normal (SHAYLEE QUESADA DO) EKG: EKG: @0533 NSR at 67bpm, no ST elevation, QRS 90ms, QT/QTc 394/419ms (SHAYLEE QUESADA DO) Radiology/Procedures: Impression: [facility] [address] [place] [address] IMAGING REPORT Signed PATIENT: KATRINA FISHER SACCOUNT: [id number] : 1975 LOCATION: ER AGE: 45 SEX: F EXAM STATUS: REG ER ORD. PHYSICIAN: SHAYLEE QUESADA DO REASON: chest pain PROCEDURE: PORTABLE CHEST 1V EXAM: CHEST ONE VIEW. HISTORY: Chest pain. COMPARISON: 01/29/2019. FINDINGS: A frontal view of the chest is obtained. There are no confluent infiltrates. There is no pneumothorax or pleural effusion. The heart is not enlarged. Calcified lymph nodes likely reflect old granulomatous disease. IMPRESSION: 1. No confluent infiltrates. Electronically signed by: Zoya Pozo MD (12/03/2020 6:18 AM) [facility] DICTATED and SIGNED BY: LUCRECIA POZO MD DATE: 12/03/20 [id number] (KIRSTINA BARR DO) Course & Med Decision Making: Course & Med Decision Making Pertinent Labs and Imaging studies reviewed. (See chart for details) Patient with low cardiac risk factors presents with report of substernal chest discomfort with some pleurisy and and shortness of breath. Denies known exposure to COVID-19. Denies fever or chills. Denies cough. No clinical signs of DVT appreciated. EKG stable. Labs obtained and pending. Chest x-ray without acute process. Signout given to Dr. Barr for further evaluation and final disposition. Discussed current findings and plan with patient, who acknowledges understanding and agreement. (SHAYLEE QUESADA DO) Course & Med Decision Making The patient remains awake, alert and in no acute distress. I did speak with the patient with respect to her lab work and after 2 days of symptoms as well as the history associate with her complaint I do not believe her problem is cardiac in nature. Likely this is may be more related to a digestive process or even musculoskeletal. The patient did report to improvement with a GI cocktail. Additionally the patient reports the pain in the area of her right upper chest and shoulder and it is very possible she may have strained something by her own reports. The patient's D-dimer was elevated however the patient denies being really short of breath. I did offer the patient imaging and she politely declined stating she would return should she experience any new shortness of air or chest pain. The patient is nontoxic-appearing resting comfortable. She is stable for discharge. (KRISTINA BARR DO) Dragon Disclaimer: Dragon Disclaimer: This electronic medical record was generated, in whole or in part, using a voice recognition dictation system. (SHAYLEE QUESADA DO) Departure Departure Impression: Primary Impression: Atypical chest pain Disposition: 01 DC HOME SELF CARE/HOMELESS Condition: GOOD Referrals: ISAURA VICTORIA MD (PCP) Patient Instructions: Chest Pain (Nonspecific) Additional Instructions: The patient has been instructed return with any new shortness of air or substernal chest pain. She is nontoxic-appearing and resting comfortably. She is stable for discharge Scripts Cyclobenzaprine Hcl (CYCLOBENZAPRINE HCL) 10 Mg Tablet 1 TAB PO TID for 5 Days, #15 TAB Prov: KRISTINA BARR DO 12/03/20 Naproxen Sodium (ANAPROX DS) 550 Mg Tablet 1 TAB PO BID for 5 Days, #10 TAB 0 Refills Prov: KRISTINA BARR DO 12/03/20 SHAYLEE QUESADA DO Dec 03, 2020 06:07 KRISTINA BARR DO Dec 03, 2020 06:31
[2020-12-03 06:21] LABS: ALBUMIN 3.6 g/dL (3.4-5.0); ALBUMIN/GLOBULIN RATIO 1.1 (1.0-1.7); CALCIUM 9.4 mg/dL (8.5-10.1); CREATININE 0.8 mg/dL (0.6-1.0); GFR 77.9; TOTAL PROTEIN 6.9 g/dL (6.4-8.2)
--- NOTE | 2020-12-03 06:21 | RAD ---
EXAM: CHEST ONE VIEW. HISTORY: Chest pain. COMPARISON: 01/29/2019. FINDINGS: A frontal view of the chest is obtained. There are no confluent infiltrates. There is no pneumothorax or pleural effusion. The heart is not en larged. Calcified lymph nodes likely reflect old granulomatous disease. IMPRESSION: 1. No confluent infiltrates. Electronically signed by: Zoya Pozo MD (12/03/2020 6:18 AM) [facility]
[2020-12-03 06:22] LABS: MAGNESIUM 1.9 mg/dL (1.8-2.4); POTASSIUM 3.7 mmol/L (3.5-5.1); TOTAL BILIRUBIN 0.3 mg/dL (0.2-1.0)
[2020-12-03 06:34] LABS: CREATINE KINASE 77 U/L (26-192)
[2020-12-03 06:44] LABS: HEMOGLOBIN 13.3 g/dL (12.0-15.5); RED BLOOD COUNT 5.31 x10^6/uL (3.50-5.40); WHITE BLOOD COUNT 11.5 x10^3/uL (4.0-11.0)
[2020-12-03 06:45] LABS: BASO # 0.1 x10^3/uL (0.0-0.2); BASO % 1 % (0-3); EOS # 0.3 x10^3/uL (0.0-0.7); EOS % 3 % (0-3); HEMATOCRIT 41.2 % (36.0-47.0); LYMPH % 34 % (24-48); MEAN CORPUSCULAR HEMOGLOBIN 25 pg (25-35); MEAN CORPUSCULAR HGB CONC 32 g/dL (31-37); MEAN CORPUSCULAR VOLUME 78 fL (79-100); MONO % 6 % (0-9); NEUT % 57 % (31-73); PLATELET COUNT 443 x10^3/uL (140-400); RED CELL DISTRIBUTION WIDTH 14.2 % (11.5-14.5)
[2020-12-03 06:46] LABS: LYMPH # 3.8 x10^3/uL (1.0-4.8); MONO # 0.7 x10^3/uL (0.0-1.1); NEUT # 6.6 x10^3/uL (1.8-7.7)
--- NOTE | 2020-12-03 07:24 | EKG ---
[facility] [address] [place] [address] Test Date: 2020-12-03 Test Time: 05:33:03 Pat Name: KATRINA FISHER Department: Room: Gender: F Development Editor: : 1975 Requested By: SHAYLEE QUESADA Order Number: [id number] Reading MD: Measurements Intervals [place] Rate: 67 P: 47 [place]: 178 QRS: -15 QRSD: 90 T: -6 QT: 394 QTc: 419 Interpretive Statements SINUS RHYTHM LEFTWARD AXIS OTHERWISE NORMAL ECG RI6.02 No previous ECG available for comparison
[2020-12-03 08:07] LABS: D-DIMER 0.71 ug/mlFEU (0.00-0.50); PROTHROMBIN TIME PATIENT 12.4 SEC (11.7-14.0)
[2020-12-03 08:29] VITALS: BP 152/71
[2020-12-03] MEDS ORDERED: CYCL10TA2 PO (08:34)
[2020-12-03] MEDS ORDERED: NAPR-682 PO (08:34)
== END 2020-12-03 08:50 | disposition home or self-care (01) ==
LOC: ER 05:26
DX: R07.2 Precordial pain (principal); I10 Essential (primary) hypertension
CPT/HCPCS: 36415; 71045; 80053; 82553; 83690; 83735; 83880; 84484; 85025; 85379; 85610; 85730; 93005; 96374; 99285; J3490